=== PATIENT | male | born 1985 | race Two or more races ===

== ENCOUNTER 2022-09-16 04:19 | Emergency (ER) | payer MEDICAID ==
[~2022-09-16] VITALS: Ht 170.2 cm; Wt 84.1 kg
[2022-09-16 04:37] VITALS: BP 41/94
[2022-09-16 06:05] LABS: Basophils # (auto) 0 10 ^3/uL (0-0.2); Basophils % (auto) 0.3 % (0.0-2.0); Eosinophils # (auto) 0.1 10 ^3/uL (0-0.8); Eosinophils % (auto) 1.3 % (0.0-7.0); Hematocrit 41.5 % (41.0-53.0); Hemoglobin 14.4 g/dL (13.5-17.5); Lymphocytes # (auto) 2.1 10 ^3/uL (0.4-5.4); Mean Corpuscular Hemoglobin 29.5 pg (28.0-32.0); Mean Corpuscular Hgb Conc. 34.6 g/dL (32.0-36.0); Mean Corpuscular Volume 85.1 fL (80.0-100.0); Monocytes # (auto) 0.6 10 ^3/uL (0-1.3); Monocytes % (auto) 7.2 % (0.0-12.0); Neutrophils # (auto) 5.9 10 ^3/uL (1.6-8.6); Neutrophils % (auto) 67.2 % (37.0-80.0); Nucleated Red Blood Cells % 0.1 %; Red Blood Cells 4.87 10^6/uL (4.5-5.90); Red Cell Distribution Width 13.3 % (11.8-14.3); White Blood Cell 8.8 10^3/uL (4.4-10.8)
[2022-09-16 06:22] LABS: Albumin 3.6 g/dL (3.4-5.0); BUN/Creatinine Ratio 19.2; Calcium 8.6 mg/dL (8.5-10.1); Potassium 3.6 mmol/L (3.5-5.1)
[2022-09-16 06:37] LABS: Bilirubin, Total 0.5 mg/dL (0.2-1.0); Total Protein 7.1 g/dL (6.4-8.2)
[2022-09-16] MEDS ORDERED: DOXYCYCLINE 100 MG TAB/CAP PO ONE (07:45)
[2022-09-16] MEDS ORDERED: CIPROFLOXACIN 400MG/200ML 200 ML IV ONE (07:45)
[2022-09-16] MEDS ORDERED: cefTRIAXone W LIDOCAINE 1 GM IM IM ONE (07:45)
[2022-09-16] MEDS ORDERED: HYDROcodone-ACET 5/325MG TAB PO ONE (07:45)
[2022-09-16] MEDS ORDERED: cefTRIAXone SOD 1,000 MG VL ONE (08:19)
== END 2022-09-16 09:35 | disposition left against medical advice (07) ==
LOC: ER 04:19
DX: N45.1 Epididymitis (principal); R10.32 Left lower quadrant pain; Z98.890 Other specified postprocedural states
CPT/HCPCS: 36415; 74177; 76870; 80053; 85025; 96365; 96372; 99285; J0696; J0744